=== PATIENT | male | born 1990 | race African-American/Black ===

== ENCOUNTER 2018-12-17 09:07 | Inpatient (IN) ==
[2018-12-17 09:56] LABS: ALLEN TEST YES; BLOOD TYPE ARTERIAL; METHB 1.3 % (0.0-1.5); PCO2(98.6) 32 mmHg (35-45); PO2(98.6) 76 mmHg (60-100); SAMPLE BLOOD; THB 8.9 g/dL (11.5-17.4); pH(98.6) 7.53 (7.35-7.45)
[2018-12-17 09:57] LABS: MODALITY CANNULA
[2018-12-17 10:08] LABS: HEMATOCRIT 22.6 % (42.0-52.0); HEMOGLOBIN 7.9 g/dL (14.0-18.0); IMM GRAN# 0.02 X1000 (0.0-0.04); IMM GRAN% 4.1 % (0.0-0.5); LYMPH% 81.6 % (20.5-51.1); MCH 27.9 PG (27-31); MCV 79.9 FL (81-99); MONO# 0.01 X1000 (0.11-0.59); MPV 9.7 FL (7.4-10.4); NEUT# 0.06 X1000 (1.4-6.5); NEUT% 12.3 % (42.2-75.2); PLT 32 X1000 (130-400); RBC 2.83 XMIL (4.7-6.1); WBC 0.49 X1000 (4.8-10.8)
[2018-12-17 10:14] LABS: AGAP 11; ALB/GLOB RATIO 0.9; ALBUMIN 3.8 g/dL (3.5-5.0); ALKALINE PHOSPHATASE 91 U/L (32-122); BUN 10 mg/dL (8-22); CALCIUM 9.7 mg/dL (8.8-10.2); CHLORIDE 100 mmol/L (98-107); COSMO 273; CREATININE 0.7 mg/dL (0.7-1.2); ESTIMATED GFR > 60; GLUCOSE 104 mg/dL (70-104); GOT 14 U/L (10-34); GPT 34 U/L (10-44); POTASSIUM 3.8 mmol/L (3.5-5.1); SODIUM 137 mmol/L (136-145); TCO2 26 mmol/L (25-35); TOTAL PROTEIN 8.2 g/dL (6.3-8.3)
--- NOTE | 2018-12-17 10:21 | Diag Imaging Result Doc PS360 ---
EXAM: CHEST-1 VIEW HISTORY: sob TECHNIQUE: Chest single view COMPARISON: 11/29/2018 FINDINGS: The lungs are well expanded. The heart is not enlarged. The vessels are not distended. There are increased interstitial markings throughout both lungs. No effusion identified. IMPRESSION: No improvement in the bilateral infiltrates. Electronically signed by Fermin Berrios 12/17/2018 10:19 AM
[2018-12-17 10:26] LABS: URINE SOURCE CLEAN CATCH
[2018-12-17 10:33] LABS: BILIRUBIN URINE NEGATIVE (NEGATIVE); BLOOD URINE NEGATIVE (NEGATIVE); COLOR YELLOW; GLUCOSE URINE NEGATIVE (NEGATIVE); KETONE URINE NEGATIVE (NEGATIVE); LEUKOCYTES URINE NEGATIVE (NEGATIVE); NITRITE URINE NEGATIVE (NEGATIVE); PH URINE 6.5; PROTEIN URINE 30 mg/dL (NEGATIVE); SP GRAVITY URINE 1.028; TURBIDITY URINE CLEAR (CLEAR); UR EPITHELIAL CELLS <10 /HPF (<10); URINE BACTERIA NEGATIVE /HPF; URINE RBC <10 /HPF (<10); URINE WBC <10 /HPF (<10); UROBILINOGEN URINE NORMAL (NORMAL)
--- NOTE | 2018-12-17 10:56 | EKG Report ---
Test Performed on : 12/17/2018 10:12:55 AM Test Reason : sob Blood Pressure : / mmHG Vent. Rate : 105 BPM Atrial Rate : 105 BPM P-R Int : 118 ms QRS Dur : 064 ms QT Int : 302 ms P-R-T Axes : 070 038 020 degrees QTc Int : 399 ms Sinus tachycardia. Possible Left atrial enlargement Borderline ECG No previous ECGs available Unconfirmed Result
[2018-12-17] MEDS ORDERED: NS 1,000 ML IV ONE (12:41)
[2018-12-17] MEDS ORDERED: TYLENOL PO ONE ×2 (12:52→15:30)
[2018-12-17] MEDS ORDERED: ZOFRAN IV PRN (13:01)
[2018-12-17] MEDS ORDERED: ZOSYN 3.375 GM in NS 50 ML IV ONE (13:03)
[2018-12-17] MEDS ORDERED: VANCOMYCIN 1 GM/NS 1 GM/250 ML IVPB IV ONE (13:03)
--- NOTE | 2018-12-17 13:06 | PROVIDER DOCUMENTATION ---
This chart was entered by Priscila Brady Scribe, acting as scribe for Miguel Ward MD. HPI-Fever - General Chief Complaint: Fever Stated Complaint: FEVER/SOB Time Seen by Provider: 12/17/18 09:41 Source: patient Allergies/Adverse Reactions: Patient Allergies Allergy/AdvReac Type Severity Reaction Status Date / Time No Known Allergies Allergy Verified 11/29/18 21:36 Home Medications: Home Medication List Medication Instructions Recorded Confirmed Last Taken Type Acyclovir 400 mg PO DAILY 12/05/18 12/05/18 Unknown History Citalopram [Celexa] 20 mg PO DAILY 12/05/18 12/05/18 Unknown History Gabapentin 300 mg PO DAILY 12/05/18 12/05/18 Unknown History Mirtazapine 15 mg PO DAILY 12/05/18 12/05/18 Unknown History Pantoprazole [Protonix] 40 mg PO DAILY@0700 12/05/18 12/05/18 Unknown History Posaconazole [Noxafil] 100 mg PO TID 12/05/18 12/05/18 Unknown History Potassium Chloride E.r. [Klor-Con] 20 meq PO DAILY 12/05/18 12/05/18 Unknown History Promethazine [Phenergan] 25 mg PO BID PRN PRN 12/05/18 12/05/18 Unknown History Tramadol [Ultram] 50 mg PO Q8H PRN PRN 12/05/18 12/05/18 Unknown History - History of Present Illness-Fever Nature of Presenting Problem: Patient is a 28 year old male who presents with fever and shortness of breath that started yesterday. Patient states he is receiving chemo for Leukemia (AML) which is followed by Dr. Bolton. Patient states he was recently diagnosed with fungal pneumonia. Does not report chest pain. Fever Severity/Quality: reports: greater than 100.5 F Onset/Duration: reports: 24 hours ago Timing: reports: still present Severity: reports: mild Context: reports: cancer-chemotherapy (leukemia) Recent Illness?: reports: pneumonia (fungal) Fever Therapy [employer]: Initiated Tylenol Cognitive Baseline: alert, oriented x3 Associated Symptoms: reports: shortness of breath Similar Symptoms Previously?: Yes Recently seen or treated by another doctor?: Yes Review of Systems - Adult - REVIEW OF SYSTEMS - ADULT Constitutional: reports: see HPI, fever. denies: chills, fatique Eyes: reports: no symptoms reported Ears, Nose, Mouth & Throat: reports: no symptoms reported Cardiovascular: reports: no symptoms reported. denies: chest pain, irregular heart rate, palpitations Respiratory: reports: see HPI, shortness of breath. denies: cough, wheezing Gastrointestinal: reports: no symptoms reported Genitourinary: reports: no symptoms reported Musculoskeletal: reports: no symptoms reported Integumentary: reports: no symptoms reported Neurological: reports: no symptoms reported Psychiatric: reports: no symptoms reported Endocrine: reports: no symptoms reported Hematologic/Lymphatic: reports: no symptoms reported Allergic/Immunologic: reports: no symptoms reported All Other Systems: Reviewed and Negative Past History - Adult - PAST MEDICAL HISTORY-ADULT Review of Records: reports: Old Records Reviewed, Nursing Assessment Review, Medications Reviewed, Social history reviewed & non-contributory. Major Childhood Illnesses: reports: denies history Cardiovascular: reports: denies history Respiratory: reports: pneumonia Gastrointestinal: reports: denies history Obstetrical/Gynecological: reports: denies history Genitourinary: reports: denies history Musculoskeletal: reports: denies history Neurological: reports: denies history Psychiatric: reports: denies history Endocrine/Immune: reports: Leukemia (AML) Other Conditions: reports: denies history - PRIOR SURGERIES/PROCEDURES Surgical/Procedure History: reports: reviewed, not pertinent, other (bone marrow aspi) - IMMUNIZATION STATUS Childhood Immunizations: See Nurse Assessment Flu Vaccine: See Nurse Assessment - FAMILY HISTORY Family History: reviewed, not pertinent - SOCIAL HISTORY Smoking: cigarettes (former) Substance Use: denies Physical Exam-General - PHYSICAL EXAM-ADULT Initial Vital Signs Reviewed: Yes - CONSTITUTIONAL General Appearance: alert, no apparent distress, cachetic. negative: lethargic - HEAD, EARS, NOSE, MOUTH & THROAT HENMT: moist mucous membranes, normal ENT inspection. negative: hearing deficit - RESPIRATORY Respiratory: chest non-tender, wheezing (bilateral). negative: respiratory distress, crackles, stridor - CARDIOVASCULAR Cardiovascular: normal peripheral pulses, tachycardia. negative: systolic murmur - GASTROINTESTINAL (ABDOMEN) Abdominal Exam: normal bowel sounds, non tender, soft. negative: rebound - MUSCULOSKELETAL Extremity: non-tender, normal inspection. negative: deformity - SKIN Integumentary: normal color, normal turgor, diaphoresis. negative: ecchymosis, erythema, jaundice - NEUROLOGIC Neurologic: grossly normal. negative: aphasia, facial droop - PSYCHIATRIC Psych/Mental Status: normal mood/affect, oriented x 3. negative: anxious Progress - PLAN OF CARE/RESULTS Progress/Plan/Lab Results: Vital Signs - 8 hr 12/17/18 09:11 12/17/18 09:34 12/17/18 09:40 Temperature 100.6 F H Pulse Rate 106 H Respiratory Rate 20 Blood Pressure 114/74 131/76 O2 Sat by Pulse Oximetry 96 100 100 12/17/18 09:50 12/17/18 10:00 12/17/18 10:02 Temperature Pulse Rate Respiratory Rate Blood Pressure 142/90 O2 Sat by Pulse Oximetry 100 97 100 12/17/18 10:10 12/17/18 10:20 12/17/18 10:30 Temperature Pulse Rate Respiratory Rate Blood Pressure O2 Sat by Pulse Oximetry 100 100 100 12/17/18 10:32 12/17/18 10:40 12/17/18 10:50 Temperature Pulse Rate Respiratory Rate Blood Pressure 130/77 O2 Sat by Pulse Oximetry 100 100 100 12/17/18 11:00 12/17/18 11:02 12/17/18 11:10 Temperature Pulse Rate Respiratory Rate Blood Pressure 112/71 O2 Sat by Pulse Oximetry 100 100 100 12/17/18 11:20 12/17/18 11:30 12/17/18 11:32 Temperature Pulse Rate Respiratory Rate Blood Pressure 119/69 O2 Sat by Pulse Oximetry 100 100 100 12/17/18 11:40 12/17/18 12:02 12/17/18 12:10 Temperature Pulse Rate Respiratory Rate Blood Pressure 119/67 O2 Sat by Pulse Oximetry 100 100 100 12/17/18 12:20 12/17/18 12:30 12/17/18 12:32 Temperature 101.5 F H Pulse Rate 87 Respiratory Rate 20 Blood Pressure 106/65 O2 Sat by Pulse Oximetry 100 100 99 12/17/18 12:40 12/17/18 12:43 Temperature 101.5 F H Pulse Rate 87 Respiratory Rate 20 Blood Pressure 106/65 O2 Sat by Pulse Oximetry 99 100 Laboratory Results - last 24 hr 12/17/18 12/17/18 12/17/18 09:30 09:30 09:30 WBC 0.49 L RBC 2.83 L Hgb 7.9 L Hct 22.6 L MCV 79.9 L MCH 27.9 MCHC 35.0 RDW Std Deviation 12.0 Plt Count 32 L* MPV 9.7 Immature Gran % (Auto) 4.1 H Neut % (Auto) 12.3 L Lymph % (Auto) 81.6 H [place] % (Auto) 2.0 Eos % (Auto) 0.0 Baso % (Auto) 0.0 Immature Gran # (Auto) 0.02 Neut # (Auto) 0.06 L* Lymph # (Auto) 0.40 L [place] # (Auto) 0.01 L Eos # (Auto) 0.00 Baso # (Auto) 0.00 Segmented Neutrophils Not Reportable Specimen Type Sample Site pH pCO2 pO2 HCO3 Base Excess Oxyhemoglobin ABG O2 Sat (Calculated) ABG O2 Saturation ABG Carboxyhemoglobin ABG Methemoglobin Felix Test A-a O2 Difference Total Hemoglobin Lactate Blood Gas Modality FiO2 % Sodium 137 Potassium 3.8 Chloride 100 Carbon Dioxide 26 Anion Gap 11 BUN 10 Creatinine 0.7 Estimated GFR/1.73 m2 > 60 BUN/Creatinine Ratio 14 Glucose 104 Calculated Osmolality 273 Calcium 9.7 Total Bilirubin 1.10 H AST 14 ALT 34 Alkaline Phosphatase 91 Total Protein 8.2 Albumin 3.8 Globulin 4.4 Albumin/Globulin Ratio 0.9 Plasma Lactate 1.3 Urine Source Urine Color Urine Turbidity Urine pH Ur Specific [place] Urine Protein Ur Glucose (Stick) Ur Ketones (Stick) Urine Blood Urine Nitrite Urine Bilirubin Urobilinogen Dipstick Urine Leukocytes Urine WBC (Auto) Urine RBC (Auto) U Epithel Cells (Auto) Urine Bacteria (Auto) 12/17/18 12/17/18 09:45 10:17 WBC RBC Hgb Hct MCV MCH MCHC RDW Std Deviation Plt Count MPV Immature Gran % (Auto) Neut % (Auto) Lymph % (Auto) [place] % (Auto) Eos % (Auto) Baso % (Auto) Immature Gran # (Auto) Neut # (Auto) Lymph # (Auto) [place] # (Auto) Eos # (Auto) Baso # (Auto) Segmented Neutrophils Specimen Type ARTERIAL Sample Site R RADIAL pH 7.53 H pCO2 32 L pO2 76 HCO3 28.0 H Base Excess 4.0 H Oxyhemoglobin 95.0 ABG O2 Sat (Calculated) 12.0 L ABG O2 Saturation 98.0 ABG Carboxyhemoglobin 1.70 ABG Methemoglobin 1.3 Felix Test YES A-a O2 Difference 84.0 Total Hemoglobin 8.9 L Lactate 0.70 Blood Gas Modality [place]ULA FiO2 % 28.0 Sodium Potassium Chloride Carbon Dioxide Anion Gap BUN Creatinine Estimated GFR/1.73 m2 BUN/Creatinine Ratio Glucose Calculated Osmolality Calcium Total Bilirubin AST ALT Alkaline Phosphatase Total Protein Albumin Globulin Albumin/Globulin Ratio Plasma Lactate Urine Source CLEAN CATCH Urine Color YELLOW Urine Turbidity CLEAR Urine pH 6.5 Ur Specific [place] 1.028 Urine Protein 30 A Ur Glucose (Stick) NEGATIVE Ur Ketones (Stick) NEGATIVE Urine Blood NEGATIVE Urine Nitrite NEGATIVE Urine Bilirubin NEGATIVE Urobilinogen Dipstick NORMAL Urine Leukocytes NEGATIVE Urine WBC (Auto) <10 Urine RBC (Auto) <10 U Epithel Cells (Auto) <10 Urine Bacteria (Auto) NEGATIVE Orders Category Date Time Status Nursing- Obtain EKG ONCE Care 12/17/18 09:41 Active CHEST-1 VIEW [RAD] Stat Exams 12/17/18 09:41 Completed ABG [RESP] Routine Lab 12/17/18 09:45 Completed CBC WITH ELECTRONIC DIFF [HEME] Stat Lab 12/17/18 09:30 Completed COMPREHENSIVE METABOLIC PANEL [CHEM] Stat Lab 12/17/18 09:30 Completed LACTATE, PLASMA [CHEM] Stat Lab 12/17/18 09:30 Completed URINALYSIS W/POSS RFLX CULT [URINALYSIS] Stat Lab 12/17/18 10:17 Completed 0.9% Sodium Chloride Inj [Ns] 1,000 ml Med 12/17/18 12:41 Active IV 125 mls/hr Acetaminophen [Tylenol] Med 12/17/18 12:52 Discontinued 1,000 mg PO NOW ONE Vancomycin 1 gm IV Now Med 12/17/18 13:03 Ordered Vancomycin 1 gm/Ns 1 gm in 250 ml IV NOW Zosyn 3.375 gm/Ns IV Now Med 12/17/18 13:03 Ordered Piperacillin/Tazobactam [Zosyn] 3.375 gm 0.9% Sodium Chloride Inj [Ns] 50 ml IV NOW EKG [EKG] Stat Ther 12/17/18 09:41 Draft 1145 - [facility], contacted [facility] about [facility] stated [facility] are [facility] full divert except for trauma. 1147 - [facility], contacted [facility] about [facility]. [facility] states they are at full capacity but will place patient on the waiting list. 1202 [facility], contacted [facility] about patient. [facility] states they are at full capacity. 1233 - Dr. Ward consulted with [facility] transfer center about patient. Dr. Ward consulted with Dr. Cm. 1240 - Patient's mother states she does not want the patient going anywhere but [facility]. 1242 - [facility], contacted [facility] about patient. [facility] transfer center states Dr. Marmolejo is trying to find a bed for the patient. 1249 - Dr. Ward consulted with [facility] transfer center about patient. 1250 - Dr. Ward consulted with Dr. Marmolejo at [facility] about patient. Dr. Marmolejo states [facility] does not have beds. Give the patient Vancomycin and Zosyn. Pt discussed with Dr Marmolejo who asked that pt get started on vanc and zosyn now and be admitted. Result Diagrams: 12/17/18 09:30 12/17/18 09:30 - EKG 1 Time of EKG reading by physician:: 10:12 EKG Read and Signed by:: Miguel Ward EKG Interpretation (*Must complete 3 of following elements*): Abnormal Rate: 105 Rhythm: sinus tachycardia [place]: normal IA Interval: normal Comments: possible left atrial enlargement - XRAY 1 XRAY Study: Chest Impression: See EMR Report ( EXAM: CHEST-1 VIEW HISTORY: sob TECHNIQUE: Chest single view COMPARISON: 11/29/2018 FINDINGS: The lungs are well expanded. The heart is not enlarged. The vessels are not distended. There are increased interstitial markings throughout both lungs. No effusion identified. IMPRESSION: No improvement in the bilateral infiltrates. Electronically signed by Fermin Berrios 12/17/2018 10:19 AM 12/17/18 1019 Interpreting Physician: Fermin Berrios MD Dictated Date/Time: 12/17/18 1019 cc: Miguel Ward MD; Rad Bolton MD) - CONSULTS/PCP/HOSPITALIST Notification #1 *Consult/PCP/Hospitalist*: SHARATH Lindquist for Hospitalist Time Discussed: 10:52 Reason/Comments: Dr. Ward consulted with [facility] about patient. Consult Disposition: other (contact [facility]. Patient's oncologist is Dr. Marmolejo at [facility].) #2 Consult: [facility] Time Discussed: 11:51 Reason/Comments: Dr. Ward consulted with [facility] about patient. Consult Disposition: other ([facility] states they are on divert.) #3 Consult: SHARATH Lindquist for Hospitalist Time Discussed: 11:53 Reason/Comments: Dr. Ward consulted with [facility] about patient. Departure - Departure Date of Disposition Decision: 12/17/18 Time of Disposition Decision: 10:59 DIAGNOSIS: Pneumonia, Anemia, Pancytopenia Disposition: ADMITTED INPATIENT 09 Certified Medical Emergency: Emergent Condition: Serious Referrals and Follow-Ups: Rad Bolton MD [Primary Care Provider] - - Critical Care Note This patient required my direct & personal management of CC.: No Attestation - Physician/ ANNAMARIA Attestation Patient care was provided by Advanced Practice Provider:: No The physician spent face to face time with patient:: Yes Advanced Practice Provider documentation review:: Supervising physician onsite and consulted in the evaluation and care of this patient. The physician did have a face to face encounter with the patient. This chart was documented by the indicated scribe, (Priscila Brady Scribe) and accurately reflects the services I performed and decisions made by me, Miguel Ward MD, as attested by the provider's signature.
[2018-12-17] MEDS ORDERED: MISC. PHARMACY COMMUNICATION SCH (13:15)
[2018-12-17] MEDS ORDERED: MOTRIN PO ONE (13:39)
[2018-12-17] MEDS: ZOVIRAX PO SCH (13:50)
[2018-12-17] MEDS ORDERED: NS 200 ML IV ONE ×3 (14:30→18:00)
[2018-12-17] MEDS ORDERED: NS NEB INH SCH (14:45)
[2018-12-17] MEDS ORDERED: BENADRYL PO ONE (15:30)
[2018-12-17] MEDS ORDERED: D5W IV ONE ×3 (15:50→18:00)
[2018-12-17] MEDS ORDERED: AMBISOME IV ONE (16:00)
[2018-12-17] MEDS: MYCELEX TROCHE PO SCH ×3 (17:31→20:42)
[2018-12-17] MEDS: NS 1,000 ML IV SCH ×2 (17:32→22:13)
[2018-12-17] MEDS: SEPTRA DS PO SCH (18:05)
[2018-12-17] MEDS: MAXIPIME 2 GM in NS 100 ML IV SCH (18:05)
[2018-12-17] MEDS: XOPENEX NEB INH SCH ×3 (18:53→23:48)
[2018-12-17] MEDS: TYLENOL PO PRN (23:09)
[2018-12-18] MEDS: MAXIPIME 2 GM in NS 100 ML IV SCH ×3 (03:00→18:33)
[2018-12-18] MEDS: SEPTRA DS PO SCH ×3 (03:13→18:34)
[2018-12-18] MEDS: XOPENEX NEB INH SCH ×6 (03:33→23:19)
[2018-12-18] MEDS: MORPHINE IV PRN ×6 (04:43→23:23)
[2018-12-18] MEDS: TYLENOL PO PRN ×3 (04:44→19:49)
--- NOTE | 2018-12-18 04:50 | HISTORY AND PHYSICAL ---
CHIEF COMPLAINT: Fever, shortness of breath. HISTORY OF PRESENT ILLNESS: This is a 28-year-old gentleman with a history of AML leukemia who is followed by Dr. Bolton as well as Dr. Marmolejo at [facility]. He presents with his mother complaining of a temperature maximum of 101.6, shortness of breath and generalized body aches that started yesterday afternoon. The patient reportedly has had a recent diagnosis of a fungal pneumonia and has been on medication for about 2 months. He was evaluated by his oncologist at [facility] on Saturday. At that time, they stated that he was febrile and they had added antibiotics to his regimen. As his symptoms, temperature persisted and he was subjectively worse, his mother brought him in for evaluation. PAST MEDICAL HISTORY: 1. AML. 2. Persistent fungal pneumonia. 3. 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 PAST SURGICAL HISTORY: Bone marrow aspiration. SOCIAL HISTORY: He lives with his mother. Denies alcohol, tobacco, or illicit drug use. ALLERGIES: No known drug allergies. HOME MEDICATIONS: 1. Celexa. 2. Acyclovir. 3. Cipro 500 mg b.i.d. 4. Augmentin 875 one b.i.d. 5. Neupogen as directed. 6. Gabapentin 300 mg at bedtime. 7. Remeron 15 mg at bedtime. 8. Protonix 40 mg p.o. daily. 9. Posaconazole 100 mg 3 tablets daily. 10. Potassium chloride 20 mEq daily, 11. Phenergan 25 mg b.i.d. as needed. 12. Ultram 50 mg 1 q.12 hours. REVIEW OF SYSTEMS: Discussed with the patient with pertinent positives stated in the HPI. He denied any syncope, any dizziness, any chest pain or palpitations, cough, wheezing, PND, orthopnea, any nausea, vomiting, diarrhea, constipation, black or bloody vomitus or stools, hematuria, dysuria, frequency, urgency. PHYSICAL EXAMINATION: GENERAL: This is a 28-year-old gentleman who is lying in the bed in the emergency room in mild distress. VITAL SIGNS: Blood pressure is 106/65 with a heart rate of 87, respirations are 20, temperature is 101.5 degrees with O2 saturation 100% on 2 L nasal cannula. HEENT: Head is normocephalic, atraumatic. Mucous membranes are moist. NECK: Supple with trachea midline. CARDIOVASCULAR: Regular rate and rhythm. S1 and S2 appreciated. He is tachycardic. Calves are nontender bilateral. Peripheral pulses are palpable x4 extremities. PULMONARY: He has inspiratory and expiratory wheezes scattered throughout with rhonchi that do not clear to cough. Chest rises and falls symmetrically with respiration. Chest wall is nontender to palpation. GASTROINTESTINAL: Abdomen is soft, nontender, nondistended with bowel sounds in all 4 quadrants. GENITOURINARY: He has no CVA or suprapubic tenderness. NEUROLOGIC: He is slow to answer. He is alert. He is oriented x3. He complains of just feeling bad all over. SKIN: Warm and dry. LABORATORIES: WBC is 0.49 with hemoglobin 7.9, hematocrit 22.6, and platelets of 32,000. Sodium 137, potassium 3.8, BUN 10, creatinine 0.7, glucose 104. Urinalysis is essentially negative. Blood cultures and urine cultures are pending. Chest x-ray revealed bilateral infiltrates that have not improved since 11/29/2018 film. ASSESSMENT AND PLAN: 1. Pneumonia with a recent diagnosis of fungal pneumonia. The patient will be admitted to ICU and placed on telemetry. Blood cultures, urine cultures have been obtained. We will order a sputum specimen. We will give antibiotic coverage of vancomycin and Zosyn as well as AmBisome dose per pharmacy. We consult Dr. Reza Tariq, infectious disease. 2. History of acute myelogenous leukemia. We will consult Dr. Bolton. We will call Dr. Marmolejo at [facility] to update. We will continue his acyclovir while in the hospital and on discharge we will review antibiotics continuing as Dr. Marmolejo requests. 3. Dehydration. We will continue with rehydration and trend his labs. 4. Neutropenia and pancytopenia. He will be placed on a neutropenic diet as well as neutropenic precautions. 5. Left-sided blindness secondary to retinal bleed. Aware. 6. Oral candidiasis. Start Mycelex troches. 7. Fever. We will use Tylenol. 8. We will obtain a fungal blood culture, sputum culture, check ABGs in the morning. 9. We will consult Dr. Arteaga of pulmonology ,Dr. Bolton and Dr. Reza Tariq. 10. The ER doctor as well as myself did speak to [facility]. They are on diversion. I spoke with Eliana, the RN at Dr. Marmolejo's office to update on events. Dr. Ward, emergency room physician, spoke with Dr. Marmolejo, who stated that once a bed becomes available that they will accept the patient in transfer. Dr. Ward did call [facility], [facility], [facility]. A bed was found at [facility] as well as [facility] in [place] and the patient and mother refused transfer stating they only wanted to go to [place] with their care is already established. 11. Further treatment pending hospital course Discussed with Dr. Mon. Dictated by SHARATH Lyn for Maude Mon MD cc: SHARATH Lyn MD MTD
--- NOTE | 2018-12-18 06:04 | INFECTIOUS DISEASE CONSULT REP ---
DATE: 12/17/2018 CONCLUSION: Unfortunately, we have very little information about this patient. He is being treated for leukemia at [facility] and developed a pneumonia, which is said to be a fungal pneumonia. When I asked the patient was the name of the pneumonia aspergillus, he thought that was the name. The patient is being treated with posaconazole. He has developed bilateral infiltrates. His CBC shows a white count of 490 with an absolute neutrophil count of 60, hemoglobin 7.9, and platelet count is 32,000. Blood gases show a pH of 7.53, a pO2 of 76, and a pCO2 of 32. Creatinine is 0.7, GFR is greater than 60. Liver function studies are normal. Urinalysis showed no white cells or bacteria. Blood and urine cultures are pending. RECOMMENDATIONS: I have started the patient on AmBisome, cefepime and Septra. It is my understanding that we have requested the records from [facility] about the patient and his current illness. PHYSICAL EXAMINATION: Vital signs: Temperature is 98.9 degrees, pulse 106, respirations 20, blood pressure 113/6. The patient is 6 feet tall, weighs 134 pounds. Generally this is a very ill-appearing, malnourished-appearing young male. He is in no acute distress. Head, eyes, ears, nose and throat: He can hear my spoken words and see near objects. He does not have any white patches in his mouth. Neck: No meningismus. Lungs clear to auscultation. Cardiovascular: Heart rate is regular. Abdomen soft and nontender. Neurologic: The patient is lethargic. He can move his extremities. There is no tremor. Integument: The patient has tattoos. I did not notice any rashes. Thank you for the consult. cc: Reza Tariq MD
[2018-12-18 06:13] LABS: HEMATOCRIT 17.9 % (42.0-52.0); HEMOGLOBIN 6.4 g/dL (14.0-18.0); LYMPH# 0.21 X1000 (1.2-3.4); MCH 28.3 PG (27-31); MCHC 35.8 g/dL (33-37); MCV 79.2 FL (81-99); MPV 10.1 FL (7.4-10.4); NEUT# 0.04 X1000 (1.4-6.5); PLT 18 X1000 (130-400); RBC 2.26 XMIL (4.7-6.1); WBC 0.25 X1000 (4.8-10.8)
[2018-12-18 06:21] LABS: AGAP 12; ALB/GLOB RATIO 0.9; ALBUMIN 3.2 g/dL (3.5-5.0); ALKALINE PHOSPHATASE 79 U/L (32-122); BUN 6 mg/dL (8-22); CALCIUM 8.8 mg/dL (8.8-10.2); CHLORIDE 104 mmol/L (98-107); COSMO 276; CREATININE 0.5 mg/dL (0.7-1.2); ESTIMATED GFR > 60; GLUCOSE 108 mg/dL (70-104); GOT 21 U/L (10-34); GPT 37 U/L (10-44); POTASSIUM 3.5 mmol/L (3.5-5.1); SODIUM 139 mmol/L (136-145); TCO2 23 mmol/L (25-35); TOTAL BILIRUBIN 1.01 mg/dL (0.20-1.00); TOTAL PROTEIN 6.8 g/dL (6.3-8.3)
[2018-12-18] MEDS: NS 1,000 ML IV SCH ×4 (06:22→23:23)
--- NOTE | 2018-12-18 06:39 | Diag Imaging Result Doc PS360 ---
EXAM: CHEST-PORTABLE HISTORY: pneumonia TECHNIQUE: Portable chest single view COMPARISON: 12/17/2018 FINDINGS: The lungs are well expanded. There are bilateral infiltrates, these are most pronounced in the lingular segment of the left upper lobe. No cardiomegaly. No pleural effusions identified. IMPRESSION: No interval improvement. Electronically signed by Fermin Berrios 12/18/2018 6:36 AM
[2018-12-18] MEDS: MYCELEX TROCHE PO SCH ×5 (09:19→20:02)
[2018-12-18] MEDS: ZOVIRAX PO SCH (09:19)
[2018-12-18] MEDS: GRANIX SUBQ SCH ×2 (09:20→09:40)
--- NOTE | 2018-12-18 14:59 | INFECTIOUS DISEASE PROGRESS NO ---
DATE: 12/18/2018 PRESENT ILLNESS: The patient is being treated at [facility] for acute myelogenous leukemia. He was on posaconazole for a fungal pulmonary infection. The patient has been admitted to [facility] Intensive [facility] Unit because his pneumonia apparently has gotten worse. MEDICATIONS: Currently the patient is on a combination of AmBisome, cefepime, and Septra. PHYSICAL EXAMINATION: Vital Signs: Temperature is 101.8 degrees, pulse respirations 28, blood pressure is 117/60. General: This is an ill-appearing young male. He is lethargic. Head/eyes/ears/nose/throat: He can hear my spoken words. I was unable to test his vision. Neck: No meningismus. Lungs: There were bilateral rales. Cardiovascular: Heart rate is regular. Abdomen: Soft and not tender. Neurologic: The patient as mentioned above, is lethargic. He can move his extremities. He does not have a tremor. LAB AND X-RAY: Chest x-ray shows continued bilateral infiltrates. The patient has refused all blood draws for lab tests and thus I do not have any other lab tests this morning. ASSESSMENT/PLAN: The patient's nurse and I discussed with the patient putting in a PICC and he has refused that and he is refused any further drawing of blood for laboratory tests. COMORBIDITIES: Patient has acute myelogenous leukemia and was being treated for a fungal infection in the lung. However, his pneumonia has not gotten better. I would like to keep going with the patient's current antimicrobial agents namely AmBisome, cefepime, and Septra, but if the patient will not allow us to draw any blood, we may not be able to because of not having laboratory data to see how his to see how the patient is doing. cc: Reza Tariq MD
[2018-12-18] MEDS ORDERED: NS 200 ML IV SCH ×2 (15:00→18:00)
[2018-12-18] MEDS ORDERED: TYLENOL PO SCH (15:30)
[2018-12-18] MEDS ORDERED: BENADRYL PO SCH (15:30)
[2018-12-18] MEDS ORDERED: D5W IV SCH ×3 (16:00→18:00)
[2018-12-18] MEDS ORDERED: AMBISOME IV SCH (16:00)
[2018-12-18] MEDS: COLACE PO SCH (20:02)
--- NOTE | 2018-12-18 20:59 | PROGRESS NOTE ---
DATE: 12/18/2018 SUBJECTIVE: The patient is resting comfortably. He complains of generalized aches and pains. He has been refusing any blood draws. OBJECTIVE: Vital Signs: Temperature 98.6 degrees, blood pressure 117/59, heart rate 106, respirations 25, O2 saturations 100% on 3 L nasal cannula. General: This is a chronically ill- appearing young male lying in bed in no acute distress. HEENT: Head normocephalic atraumatic. Heart: S1, S2 normal. Tachycardic. Lungs: Coarse breath sounds bilaterally. Abdomen: Positive bowel sounds. Soft, nontender, nondistended. Extremities: No edema, no cyanosis. Neurologic: The patient is alert and oriented x4. The patient does have a flat affect. LABORATORY DATA: White blood cell count 0.25, hemoglobin 6.4, hematocrit 17, platelets 18,000. ANC 4. Sodium 139, potassium 3.5, chloride 104, CO2 23, BUN 6, creatinine 0.5, glucose 108. ASSESSMENT AND PLAN: 1. Acute hypoxemic respiratory failure. Likely secondary to the patient's underlying fungal pneumonia. We will continue with the antifungal treatment as directed by Dr. Tariq, as well as bronchodilator therapy and supplemental oxygen. 2. Fungal pneumonia. Continue ambisome as directed by . 3. AML. The patient is severely pancytopenic. [facility] was called yesterday as well as today and the ICU is still on diversion. The patient will require packed red blood cells today as well as platelet transfusion. However, the patient is refusing blood draws. Oncology is following. 4. Suspected depression. Will restart the patient on Celexa and monitor his response closely. 5. Gastrointestinal prophylaxis. Will start protonix. cc: Maude Mon MD [facility]
[2018-12-19] MEDS: MAXIPIME 2 GM in NS 100 ML IV SCH ×2 (03:06→09:26)
[2018-12-19] MEDS: TYLENOL PO PRN ×3 (03:06→18:03)
[2018-12-19] MEDS: SEPTRA DS PO SCH ×2 (04:10→09:25)
[2018-12-19] MEDS: XOPENEX NEB INH SCH ×6 (05:26→23:27)
[2018-12-19] MEDS: NS 1,000 ML IV SCH ×3 (05:30→22:13)
[2018-12-19] MEDS: PROTONIX PO SCH (06:43)
--- NOTE | 2018-12-19 07:03 | Diag Imaging Result Doc PS360 ---
EXAM: CHEST-PORTABLE 12/19/2018 HISTORY: pneumonia TECHNIQUE: AP portable at 0517 COMMENT: There is patchy alveolar opacity bilaterally consistent with pulmonary edema. This has not changed appreciably since 12/18/2018. IMPRESSION: Pulmonary edema versus pneumonia. Electronically signed by Jesus Benson 12/19/2018 7:01 AM
--- NOTE | 2018-12-19 08:57 | INFECTIOUS DISEASE PROGRESS NO ---
DATE: 12/19/2018 PRESENT ILLNESS: The patient is being treated at [facility] for acute myelogenous leukemia. He had an abscess that was drained at [facility]. He also had bronchoscopy and in the bronchial washings, yeast forms were seen. The patient continues to not allow to have needle sticks to get laboratory tests. MEDICATIONS: The patient is receiving AmBisome, cefepime, Septra and Mycelex troches. OBJECTIVE: Vital signs: Temperature is 102, pulse 102, respirations 26, blood pressure 98/52. General: This is an ill-appearing young male. He is in no acute distress, and he is somewhat lethargic. HEENT: He can hear my spoken words and see near objects. He has some white coating on his tongue. Neck: No meningismus. Lungs: The patient had bilateral basilar rales. Cardiovascular: Heart rate is regular and rapid. Abdomen: Soft and nontender. Bones, joints and muscles: Movement of his hips does not seem to cause the patient pain. Neurologic: The patient was arousable. He did follow request to move his extremities. Integument: No rash. The patient does have tattoos. DIAGNOSTIC DATA: Chest x-ray shows bilateral patchy alveolar opacities. Blood cultures are negative. Urine culture is mixed. Sputum is growing a gram-negative kyung. CBC shows a white count of 250, hemoglobin 6.4 and platelet count of 18,000. Creatinine is 0.5, GFR is greater than 60. ASSESSMENT AND PLAN: The patient has what appears to me to be a severe pulmonary infection. My plan is to continue treatment with AmBisome, cefepime and Septra. The patient also appears to have oral candidiasis. He already is on AmBisome, and also he is taking Mycelex troches for the presumed oral candidiasis. My plan is to continue the current antibiotics. It should be noted that the patient is not allowing to have any blood drawing done. COMORBIDITIES: Acute myelogenous leukemia. cc: MD NICK Lugo
[2018-12-19] MEDS: ZOVIRAX PO SCH (09:25)
[2018-12-19] MEDS: GRANIX SUBQ SCH ×2 (09:26→09:40)
[2018-12-19] MEDS: MYCELEX TROCHE PO SCH ×6 (09:26→20:39)
[2018-12-19] MEDS: MIRALAX PO SCH (09:26)
[2018-12-19] MEDS: COLACE PO SCH ×2 (09:26→20:39)
[2018-12-19] MEDS: CELEXA PO SCH (09:26)
[2018-12-19] MEDS: MORPHINE IV PRN ×4 (09:26→21:13)
--- NOTE | 2018-12-19 09:28 | HEMO/ONC CONSULTATION ---
DATE: 12/18/2018 ADMITTING PHYSICIAN: Dr. Mon. REQUESTING PHYSICIAN: Dr. Mon. We appreciate this consult. CHIEF COMPLAINT: Acute myeloid monocytic leukemia. HISTORY OF PRESENT ILLNESS: Mr. Qi Bullock is a 28-year-old -Russian male who recently became known to Dr. Bolton secondary to acute myeloid monocytic leukemia. He is status post induction at [facility]. The patient has been in remission with persistent pancytopenia. He has most recently been following with Dr. Bolton in the clinic for close evaluation of CBC and for clinic followup. The patient was on Neupogen daily secondary to neutropenia that has been persistent. However, secondary to insurance difficulties, the patient was unable to receive his Neupogen for several days prior to admission. The patient present to [facility] the day of admission with his mother with complaints of a temperature max of 101.6 with shortness of breath and generalized body aches. The patient had been diagnosed with fungal pneumonia and had been on medication for 2 months. Additionally, the patient was evaluated by Dr. Marmolejo at [facility] due to prolonged pneumonia. However, the patient became progressively worse with worsening fever and body aches and presented to [facility]. He is admitted for persistent fungal pneumonia, questionable sepsis and profound pancytopenia. PAST MEDICAL HISTORY: 1. AML. 2. Persistent fungal pneumonia. 3. 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 PAST SURGICAL HISTORY: Bone marrow aspiration. SOCIAL HISTORY: The patient does not use tobacco, alcohol or illicit drugs. FAMILY HISTORY: Negative for any hematologic or oncologic disease. MEDICATIONS ON ADMISSION: 1. Celexa. 2. Acyclovir. 3. Cipro. 4. Augmentin. 5. Neupogen. 6. Gabapentin. 7. Remeron. 8. Protonix. 9. Posaconazole. 10.Potassium chloride. 11.Phenergan. 12.Ultram. ALLERGIES: The patient has no known drug allergies. REVIEW OF SYSTEMS: A 14 point review of systems was obtained and is negative except for as mentioned in the HPI. PHYSICAL EXAMINATION: GENERAL: Mr. Bullock is a 28-year-old -Russian male lying supine in bed in obvious distress. He is currently having chills and warm to the touch. VITAL SIGNS: Temperature 101.2 degrees, blood pressure 117/60, heart rate 103, respirations 28, O2 saturation 95% on room air. HEENT: Normocephalic, atraumatic. Mucous membranes are pale and dry. Sclerae anicteric. Extraocular movements intact. NECK: Supple. LUNGS: With decreased breath sounds in the bases. CARDIOVASCULAR: S1, S2 is heard. The patient is tachycardic. ABDOMEN: Soft, nontender, nondistended. Bowel sounds positive throughout. No rebound or guarding noted. EXTREMITIES: With cyanosis, clubbing or edema. DERMATOLOGIC: No rashes, bruises or lesions. NEUROLOGICAL: The patient is somnolent. He is oriented x3. He has no overt focal deficit. LABORATORY DATA: ANC 0.04. Hemoglobin 6.4, hematocrit 17.9, white blood cell count is 0.25, platelets 18,000. Sodium 138, potassium 3.5, chloride 104, CO2 is 23, BUN 6, creatinine 0.5 and glucose 108. Urinalysis is negative for UTI. Sputum cultures are positive. Blood cultures are currently pending. IMAGING STUDIES: Chest x-ray reveals bilateral infiltrates. ASSESSMENT AND PLAN: 1. Acute myeloid monocytic leukemia status post induction. The patient has been in remission with persistent pancytopenia. He had been on daily Neupogen until insurance was changed and Neupogen was not paid for. The patient apparently missed several days of Neupogen. We will begin daily Granix at this time. We will follow CBC closely. Additionally, the patient was receive 2 units packed red blood cells. 2. Fungal pneumonia on acyclovir, amphotericin, cefepime and Septra. Infectious Disease has been consulted and is following. 3. Neutropenia and pancytopenia. Again, the patient will be placed on daily Granix. He is currently on reverse isolation. We agree with this decision. Additionally, he is on antibiotics per Infectious Disease. We will follow CBC very closely. 4. Dehydration. The patient is currently on IV fluids. 5. Fever. The patient will receive Tylenol as needed for fever. We will follow along with you and make further recommendations pending outcomes. The above reflects the history, exam, assessment and plan of Dr. Bolton. Dictated by SHARATH Story for Rad Bolton MD cc: SHARATH Story MD
--- NOTE | 2018-12-19 09:30 | PULMONOLOGY CONSULTATION ---
DATE: 12/19/2018 REQUESTING PHYSICIAN: Dr. Mon. REASON FOR CONSULTATION: Respiratory failure. HISTORY OF PRESENT ILLNESS: Mr. Bullock is a 28-year-old male with acute myeloid leukemia, who has followed at [facility]. The patient has pancytopenia which has been present for at least the last month in our computer system. The patient was seen in the emergency room 11/29/2018 with a nose bleed. He was being treated for pneumonia at that time with ciprofloxacin, Augmentin, and posaconazole for possible fungal pneumonia. The patient's x-ray at that time revealed bilateral infiltrates with a diffuse nature. He was seen earlier this week at [facility] and additional antibiotics were added to his regimen. The patient developed fevers and presented to our emergency room yesterday. Chest x-ray reveals bilateral infiltrates without significant change. PAST MEDICAL HISTORY: Problem list: 1. Persistent pneumonia for the last 3 weeks, currently being treated with broad-spectrum antibiotics including antifungal agents. 2. Acute myelogenous leukemia with pancytopenia. 3. Blindness in the left eye secondary to a retinal bleed. SOCIAL HISTORY: The patient lives with his mother. No alcohol or tobacco use listed. REVIEW OF SYSTEMS: Difficult to obtain. The patient is withdrawn. He is agitated about multiple clinicians asking him questions. He is currently refusing to have his blood drawn. He is waiting to be transferred to [facility] and reports he will tell them more when he gets there. PHYSICAL EXAMINATION: General: Reveals a thin, chronically ill-appearing male in no distress. He has no increased work of breathing. Vital Signs: Blood pressure 115/67, heart rate 107, respiratory rate 23, oxygen saturation 93%. HEENT: Pupils are equal and reactive. Oropharynx appears clear. Retinal exam not performed. Chest: Faint crackles bilaterally. Cardiac: S1- S2. Abdomen: Soft. Extremities: Without edema. LABORATORIES: Chest x-ray as per above. White blood count 0.25, hemoglobin 6.4, platelet count 18,000. IMPRESSION: 28-year-old with hypoxemic respiratory failure, bilateral pneumonia, pancytopenia with bone marrow failure, persistent infiltrates on chest x-ray without progression over the last 3 weeks. RECOMMENDATION: 1. Continue oxygen for hypoxemic respiratory failure. 2. Continue broad-spectrum antibiotics as outlined by Dr. Reza Tariq. 3. Would check immunoglobulin levels, but would check with oncology before transfusion of immunoglobulin. 4. Encourage patient to undergo blood draws. 5. Prognosis appears guarded to poor. cc: Joon Arteaga MD
[2018-12-19 18:10] LABS: INR 1.3; PROTIME 17.2 Seconds (11.0-16.0)
[2018-12-19 18:34] LABS: HEMOGLOBIN 5.7 g/dL (14.0-18.0); LYMPH# 0.13 X1000 (1.2-3.4); LYMPH% 72.2 % (20.5-51.1); MCH 27.9 PG (27-31); MCHC 35.6 g/dL (33-37); MCV 78.4 FL (81-99); MPV 9.5 FL (7.4-10.4); NEUT# 0.05 X1000 (1.4-6.5); NEUT% 27.8 % (42.2-75.2); PLT 7 X1000 (130-400); RBC 2.04 XMIL (4.7-6.1); RDW 11.8 % (11.5-14.5); WBC < 0.20 X1000 (4.8-10.8)
[2018-12-19 18:40] LABS: AGAP 15; ALBUMIN 3.2 g/dL (3.5-5.0); ALKALINE PHOSPHATASE 94 U/L (32-122); BUN 5 mg/dL (8-22); CALCIUM 8.2 mg/dL (8.8-10.2); CHLORIDE 102 mmol/L (98-107); COSMO 271; CREATININE 0.5 mg/dL (0.7-1.2); ESTIMATED GFR > 60; GLUCOSE 104 mg/dL (70-104); GOT 10 U/L (10-34); GPT 23 U/L (10-44); POTASSIUM 2.9 mmol/L (3.5-5.1); SODIUM 137 mmol/L (136-145); TCO2 20 mmol/L (25-35); TOTAL PROTEIN 6.3 g/dL (6.3-8.3)
--- NOTE | 2018-12-19 20:28 | INFECTIOUS DISEASE PROGRESS NO ---
DATE: 12/19/2018 ADDENDUM: Dr. Mon and I just had a conversation. The patient has still decided not to let us draw blood for laboratory tests. Dr. Mon and I both feel that the patient is on medications that need to be monitored very closely with laboratory tests and the 2 specific ones that I am talking about are amphotericin and Septra. Yesterday, I told the patient that if we cannot draw blood for lab tests, I will not be able to treat him with the medications I have just mention and that the patient most likely will unless he gets treatment. But, he still, yesterday, said that he would not allow blood draws and today he has said the same thing. I have gone ahead and discontinued amphotericin and Septra and I have decreased the dose of cefepime to 1 g IV every 8 hours. cc: Reza Tariq MD
[2018-12-19] MEDS: MAXIPIME 1 GM in NS 50 ML IV SCH (20:39)
[2018-12-19] MEDS ORDERED: KLOR-CON PO ONE (22:09)
[2018-12-19] MEDS ORDERED: POTASSIUM CHLORIDE 20 MEQ/SWI 20 MEQ/100 ML IVPB IV ONE (22:11)
[2018-12-20] MEDS: TYLENOL PO PRN ×2 (00:14→08:08)
[2018-12-20] MEDS: MORPHINE IV PRN ×3 (01:33→11:08)
--- NOTE | 2018-12-20 03:39 | PROGRESS NOTE ---
DATE: 12/19/2018 SUBJECTIVE: The patient has been despondent and will not communicate with nursing staff or the physicians. He continues to refuse blood draws. OBJECTIVE: Vital Signs: Temperature 99.3 degrees, blood pressure 127/63, heart rate 116, respirations 32, O2 saturation is 91% on 3 L nasal cannula. Intake 4.2 L, output 4 L. General: This is a thin, emaciated young male, lying in bed in no acute distress. Head: Normocephalic, atraumatic. Heart: S1, S2 normal. Tachycardic. Lungs: Equal air entry bilaterally. No wheezing. No rales. Abdomen: Positive bowel sounds. Soft, nontender, nondistended. Extremities: No edema. No cyanosis. Neurologic: The patient is alert and oriented x4. He does have a flat affect and appears depressed. LABORATORY: None. ASSESSMENT AND PLAN: 1. Acute hypoxemic respiratory failure. 2. Suspected fungal pneumonia. Due to the patient refusing blood draws, the AmBisome has been discontinued due to the high risk of renal failure, and since the patient is refusing blood draws, we cannot monitor his renal function as a result. This was discussed with Dr. Tariq, who is in agreement. 3. Acute myeloid leukemia. The patient remains severely pancytopenic. We have been unable to check laboratory studies today, or to initiate any blood transfusion or platelet transfusion, because the patient has been refusing blood draws to type and cross match. The patient is currently on Granix. Dr. Bolton is following. 4. Severe depression. Will continue on Celexa. 5. Severe pancytopenia. The patient will remain on neutropenic precautions. 6. Disposition. The patient has a very poor prognosis at this time. This was discussed with the patient as well as his mother this morning. I also called [facility] and they are currently on ICU diversion. Will also consult with Palliative Care to assist with goals of care. cc: Maude Mon MD
[2018-12-20] MEDS: NS 1,000 ML IV SCH (05:44)
[2018-12-20] MEDS: XOPENEX NEB INH SCH ×3 (05:45→11:40)
[2018-12-20] MEDS: PROTONIX PO SCH (06:18)
[2018-12-20] MEDS ORDERED: NS 1,000 ML IV SCH (06:48)
[2018-12-20] MEDS: MAXIPIME 1 GM in NS 50 ML IV SCH (08:10)
[2018-12-20] MEDS: COLACE PO SCH (08:16)
[2018-12-20] MEDS: MIRALAX PO SCH (08:16)
[2018-12-20] MEDS: CELEXA PO SCH (08:16)
--- NOTE | 2018-12-20 08:17 | Diag Imaging Result Doc PS360 ---
EXAM: CHEST-PORTABLE INDICATION: pneumonia TECHNIQUE: One view COMPARISON: 12/19/2018 FINDINGS: Diffuse airspace consolidation bilaterally most compatible with pulmonary edema +/- pneumonia is essentially stable given slight differences in positioning. No new consolidation is identified. Cardiac silhouette is stable. IMPRESSION: Stable chest. Electronically signed by Bryson Atkins 12/20/2018 8:14 AM
[2018-12-20] MEDS: MYCELEX TROCHE PO SCH ×2 (08:22→12:04)
[2018-12-20] MEDS: ZOVIRAX PO SCH (08:32)
[2018-12-20] MEDS ORDERED: LASIX IV ONE (08:36)
[2018-12-20] MEDS ORDERED: CLINIMIX E 4.25%-5% SOLUTION 1,000 ML IV SCH (08:45)
[2018-12-20 08:51] LABS: HEMATOCRIT 23.3 % (42.0-52.0); LYMPH# 0.17 X1000 (1.2-3.4); LYMPH% 73.9 % (20.5-51.1); MCH 26.8 PG (27-31); MCHC 34.3 g/dL (33-37); MCV 78.2 FL (81-99); MPV 12.1 FL (7.4-10.4); NEUT# 0.06 X1000 (1.4-6.5); NEUT% 26.1 % (42.2-75.2); PLT 48 X1000 (130-400); RBC 2.98 XMIL (4.7-6.1); RDW 12.6 % (11.5-14.5); WBC 0.23 X1000 (4.8-10.8)
[2018-12-20 08:54] LABS: AGAP 12; ALB/GLOB RATIO 0.8; ALKALINE PHOSPHATASE 88 U/L (32-122); BUN 5 mg/dL (8-22); CALCIUM 9.1 mg/dL (8.8-10.2); CHLORIDE 100 mmol/L (98-107); COSMO 266; CREATININE 0.5 mg/dL (0.7-1.2); ESTIMATED GFR > 60; GLUCOSE 102 mg/dL (70-104); GOT 8 U/L (10-34); GPT 17 U/L (10-44); POTASSIUM 3.2 mmol/L (3.5-5.1); SODIUM 134 mmol/L (136-145); TCO2 22 mmol/L (25-35); TOTAL BILIRUBIN 1.68 mg/dL (0.20-1.00)
[2018-12-20] MEDS ORDERED: GRANIX SUBQ SCH (09:00)
[2018-12-20] MEDS ORDERED: POTASSIUM CHLORIDE 20% LIQUID PO ONE (09:41)
--- NOTE | 2018-12-20 09:45 | PULMONOLOGY PROGRESS NOTE ---
DATE: 12/19/2018 SUBJECTIVE: The patient is sleeping. He is arousable. He is refusing blood sticks. OBJECTIVE: Vital Signs: Maximum temperature in the last 24 hours 102.3 degrees, BP 127/63, heart rate 116, respiratory rate 32, oxygen saturation 92% on room air. HEENT: Pupils are equal. Oropharynx appears clear but the patient will not cooperate with exam. Neck: Supple. Chest: Reveals good air entry bilaterally with faint crackles. Cardiac exam: S1, S2. Abdomen: Soft. Extremities: Without edema. LABORATORIES: No new chemistries or CBC today. No new culture data. Chest x-ray reveals patchy infiltrates bilaterally, unchanged from 12/18/2018. IMPRESSION: A 28-year-old with: 1. Acute myelogenous leukemia. 2. Pancytopenia. 3. Persistent bilateral infiltrates. 4. Hypoxemic respiratory failure. 5. Refusal to have blood drawn as outlined above. RECOMMENDATIONS: 1. Continue oxygen for hypoxemic respiratory failure. 2. Antibiotics under the direction of Dr. Reza Tariq. 3. Ongoing discussions/negotiations with patient to optimize his care. 4. Hopefully there will be a transfer to [facility] and hopefully he will be more cooperative at that institution. cc: Joon Arteaga MD
[2018-12-20 10:17] LABS: ANISOCYTOSIS 2+; LYMPHS 76 % (21-51); MICROCYTOSIS 2+; SEGS 24 % (42-75)
[2018-12-20 10:18] LABS: POLYCHROM 1+; TARGET CELLS 1+
[2018-12-20 11:53] VITALS: BP 131/63
--- NOTE | 2018-12-23 13:34 | DISCHARGE SUMMARY ---
ADMISSION DATE: 12/17/2018 DISCHARGE DATE: 12/20/2018 FINAL DISCHARGE DIAGNOSES: 1. Acute hypoxemic respiratory failure. 2. Suspected fungal pneumonia. 3. AML 4. Severe pancytopenia. 5. Severe depression. 6. Medical noncompliance. CONSULTATIONS: 1. ID consultation with Dr. Reza Tariq. 2. Oncology consultation with Dr. Bolton. 3. Pulmonary consultation with Dr. Arteaga. IMAGING: Portable chest x-ray performed on 12/17 with bilateral infiltrates. HOSPITAL COURSE: Mr. Bullock is 28-year-old male with AML on chemotherapy under the care of Dr. Marmolejo at [facility] and Dr. Bolton,who presented to the ER with a chief complaint of shortness of breath and fever. The patient is currently on oral antifungals for fungal pneumonia that was diagnosed at [facility]. The patient presented to the ER today with shortness of breath and persistent fever. On admission, the patient was noted to have a white blood cell count 0.4 with an ANC of 0.06, a hemoglobin 7.9, and a platelet count of 32,000. Also, a chest x-ray was done that revealed bilateral infiltrates suggestive of pneumonia. Attempts were made to transfer the patient to [facility]. The case was discussed with the patient's oncologist Dr. Marmolejo at [facility]. However, they could not accept the patient because there were no ICU beds available. Therefore, the patient was admitted to the medical ICU at [facility]. ID was consulted as well as Pulmonary Medicine and Oncology. The patient was started on IV fluids plus AmBisome. Shortly after arriving in the ICU, the patient started to refuse blood draws. He would even refuse to communicate with nursing staff and doctors. This was discussed extensively with the patient's mother, who stated that she was aware of the patient's behavior. Attempts were made daily to have the patient transferred to [facility] under the care of the oncology team. Unfortunately, there were no beds available every day. On 12/20/2018, there was a bed available. The case was discussed with Dr. Bea Strong the on-call oncologist who was familiar with the patient's history. She accepted the patient for transfer to [facility]. The patient was transferred to [facility] on 12/20/2018 via EMS. cc: Maude Mon MD [facility]
== END 2018-12-20 13:29 | disposition short-term general hospital (02) | DRG 193 ==
LOC: ED 09:07 → ICU 15:44 → 4N 12-20 09:39
PROVIDERS: ATTEND Internal Medicine
CPT/HCPCS: 36430; 71010; 71045; 80053; 81001; 82805; 83605; 83735; 85025; 85610; 86850; 86900; 86901; 86920; 87015; 87040; 87070; 87088; 87103; 87205; 93005; 94640; 94761; 96361; 96365; 96367; 96375; 96376; 97162; 97530; 99285; A9270; J0289; J0692; J1446; J1447; J1940; J2270; J2405; J2543; J3370; J3480; J7030; J7050; J7060; P9016; P9035